=== PATIENT | male | born 1965 | race Two or more races ===

== ENCOUNTER 2017-04-12 01:20 | Emergency (ER) | payer OTHER ==
[~2017-04-12] VITALS: Ht 172.7 cm; Wt 71.7 kg
[~2017-04-12 01:20] MED LIST: HYDR-3651 PO; IBUP-1482 PO; NAPR220C15 PO; VALACYCLOVIR; [UNRECOGNIZED DRUG - OTHER]
[2017-04-12] MEDS ORDERED: DEXAMETHASONE SOD PHOSPHATE 4 MG INJ IM ONE (02:00)
--- NOTE | 2017-04-12 02:10 | NUR ---
Patient discharged to home in stable conditon. Written and verbal after care instructions given. Patient verbalizes understanding of instructions.
[2017-04-12] MEDS ORDERED: DEXAMETHASONE SOD PHOSPHATE 4 MG INJ ONE (02:16)
== END 2017-04-12 02:14 | disposition home or self-care (01) ==
LOC: ER 01:23
DX: J02.9 Acute pharyngitis, unspecified (principal); Z88.8 Allergy status to other drugs, medicaments and biological substances
CPT/HCPCS: 96372; 99283; A4663; J1100

== ENCOUNTER 2017-05-29 00:26 | Emergency (ER) | payer MEDICAID, OTHER ==
[~2017-05-29] VITALS: Ht 167.6 cm; Wt 71.7 kg
[~2017-05-29 00:26] MED LIST changes: -HYDR-3651 PO; +HYDR-4209 PO; -IBUP-1482 PO; +IBUP-1957 PO
[2017-05-29] MEDS: DEXAMETHASONE SOD PHOSPHATE 4 MG INJ IM ONE (01:16)
[2017-05-29] MEDS: AZITHROMYCIN 250 MG TABLET PO ONE (01:17)
--- NOTE | 2017-05-29 01:17 | NUR ---
Darrius brantley in ED - 05/29/17 at 0117 by MERARY Patient discharged to home in stable conditon. Written and verbal after care instructions given. Patient verbalizes understanding of instructions.
[2017-05-29] MEDS ORDERED: AZITHROMYCIN 250 MG TABLET ONE (01:21)
[2017-05-29] MEDS ORDERED: DEXAMETHASONE 4 MG TABLET ONE (01:21)
--- NOTE | 2017-05-29 01:21 | NUR ---
Patient discharged to home in stable conditon. Written and verbal after care instructions given. Patient verbalizes understanding of instructions.
[2017-05-29] MEDS ORDERED: DEXAMETHASONE SOD PHOSPHATE 4 MG INJ ONE (01:28)
== END 2017-05-29 01:23 | disposition home or self-care (01) ==
LOC: ER 00:28
DX: J02.9 Acute pharyngitis, unspecified (principal); Z88.8 Allergy status to other drugs, medicaments and biological substances
CPT/HCPCS: A4663; J1100; J8540; Q0144

== ENCOUNTER 2018-01-21 00:36 | Emergency (ER) | payer OTHER ==
[~2018-01-21] VITALS: Ht 167.6 cm; Wt 66.2 kg
[2018-01-21] MEDS: IV NORMAL SALINE 500 ML BAG IV ONE (01:04)
--- NOTE | 2018-01-21 01:12 | NUR ---
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
[2018-01-21 01:13] LABS: BASOPHILS % (AUTO) 0.3 % (0.0-2.0); EOSINOPHILS # (AUTO) 0.1 K/uL (0.0-0.7); EOSINOPHILS % (AUTO) 1.5 % (0.0-7.0); HEMATOCRIT 36.2 % (36.7-47.1); HEMOGLOBIN 12.1 g/dL (12.5-16.3); LYMPHOCYTES # (AUTO) 1.2 K/uL (20.0-40.0); LYMPHOCYTES % (AUTO) 22.6 % (20.5-51.5); MEAN CORPUSCULAR HEMOGLOBIN 32.7 uug (23.8-33.4); MEAN CORPUSCULAR HGB CONC 34 g/dL (32.5-36.3); MEAN CORPUSCULAR VOLUME 97.2 fL (73.0-96.2); MONOCYTES # (AUTO) 0.5 K/uL (2.0-10.0); MONOCYTES % (AUTO) 10.6 % (0.0-11.0); NEUTROPHILS # (AUTO) 3.3 K/uL (1.8-8.9); PLATELET COUNT (AUTO) 312 K/uL (152-348); RED BLOOD CELL COUNT(AUTO) 3.72 MIL/uL (4.06-5.63); WHITE BLOOD COUNT (AUTO) 5.1 K/uL (3.6-10.2)
[2018-01-21 01:16] LABS: CREATININE 1.4 mg/dL (0.6-1.3); POTASSIUM 3.8 mmol/L (3.5-5.1)
--- NOTE | 2018-01-21 01:33 | NUR ---
Patient in bed, no acute distress noted.
[2018-01-21 01:40] LABS: BILIRUBIN,DIRECT 0.1 mg/dL (0.0-0.2); BILIRUBIN,TOTAL 0.4 mg/dL (0.2-1.0)
[2018-01-21] MEDS ORDERED: KETOROLAC TROMETHAMINE 30 MG INJ ONE (01:53)
[2018-01-21] MEDS: KETOROLAC TROMETHAMINE 30 MG INJ IVP ONE (01:57)
[2018-01-21 01:58] VITALS: BP 121/78
--- NOTE | 2018-01-21 01:58 | NUR ---
Patient discharged to home in stable conditon. Written and verbal after care instructions given. Patient verbalizes understanding of instructions. Ambulated from ER with stable gait. Peripheral IV removed prior to d/c. All belongings with patient.
== END 2018-01-21 02:02 | disposition home or self-care (01) ==
LOC: ER 00:40
DX: R07.89 Other chest pain (principal); Z88.8 Allergy status to other drugs, medicaments and biological substances; Z79.1 Long term (current) use of non-steroidal anti-inflammatories (NSAID); Z79.891 Long term (current) use of opiate analgesic; Z79.899 Other long term (current) drug therapy
CPT/HCPCS: 36415; 71045; 80048; 80076; 83880; 84484; 85025; 85730; 93005; 96374; 99285; A4663; J1885; J7040; 70030-TC

== ENCOUNTER 2018-01-28 22:37 | Emergency (ER) | payer OTHER ==
[~2018-01-28] VITALS: Ht 167.6 cm; Wt 68.9 kg
[2018-01-28] MEDS ORDERED: HYDROCODONE-ACETAMIN 10-325 MG (23:09)
[2018-01-28] MEDS ORDERED: OMEPRAZOLE CAP 40MG (23:09)
[2018-01-28] MEDS ORDERED: VIAGRA 100 MG TABLET (23:09)
[2018-01-28] MEDS ORDERED: VALACYCLOVIR HCL 500 MG TABLET (23:09)
[2018-01-28] MEDS ORDERED: TRUVADA 200 MG-300 MG TABLET (23:09)
[2018-01-28] MEDS ORDERED: ALFUZOSIN HCL 10 MG (23:09)
[2018-01-28] MEDS ORDERED: NORTRIPTYLINE HCL 10 MG CAP (23:09)
[2018-01-28] MEDS ORDERED: ALFUZOSIN 10 MG (23:09)
--- NOTE | 2018-01-29 00:15 | NUR ---
BATSHEVA GARCIA AT BEDSIDE FOR MSE.
--- NOTE | 2018-01-29 00:25 | NUR ---
PT AMBULATED TO AND FROM BATHROOM W/ STEADY GAIT. DENIES DIZZINESS OR SOB.
--- NOTE | 2018-01-29 00:27 | NUR ---
[facility] AT BEDSIDE FOR BLOOD DRAW.
[2018-01-29 00:42] LABS: BASOPHILS % (AUTO) 0.3 % (0.0-2.0); EOSINOPHILS # (AUTO) 0.1 K/uL (0.0-0.7); EOSINOPHILS % (AUTO) 1.5 % (0.0-7.0); HEMATOCRIT 37.8 % (36.7-47.1); HEMOGLOBIN 12.5 g/dL (12.5-16.3); LYMPHOCYTES # (AUTO) 1.4 K/uL (20.0-40.0); LYMPHOCYTES % (AUTO) 21.9 % (20.5-51.5); MEAN CORPUSCULAR HEMOGLOBIN 31.9 uug (23.8-33.4); MEAN CORPUSCULAR HGB CONC 33 g/dL (32.5-36.3); MEAN CORPUSCULAR VOLUME 96.6 fL (73.0-96.2); MONOCYTES # (AUTO) 0.6 K/uL (2.0-10.0); MONOCYTES % (AUTO) 9.7 % (0.0-11.0); NEUTROPHILS # (AUTO) 4.2 K/uL (1.8-8.9); NEUTROPHILS % (AUTO) 66.6 % (38.5-71.5); PLATELET COUNT (AUTO) 343 K/uL (152-348); RED BLOOD CELL COUNT(AUTO) 3.92 MIL/uL (4.06-5.63); WHITE BLOOD COUNT (AUTO) 6.3 K/uL (3.6-10.2)
[2018-01-29 00:42] LABS: *BILIRUBIN,URIN NEGATIVE (NEGATIVE); *BLOOD, URINE Trace-intact (NEGATIVE); *CLARITY,URINE CLEAR (CLEAR); *COLOR,URINE YELLOW (YELLOW); *KETONES,URINE NEGATIVE (NEGATIVE); *PROTEIN,URINE NEGATIVE (NEGATIVE); *UROBILINOGEN,URINE 0.2 E.U./dl (NORMAL); LEUKOCYTE ESTERASE ,URINE 1+ (NEGATIVE); NITRITE, URINE NEGATIVE (NEGATIVE); PH,URINE 5.5 (5.0-8.0); UGLUCOSE NEGATIVE (NEGATIVE)
[2018-01-29 00:48] LABS: BACTERIA,URINE FEW /HPF (NONE SEEN); SQUAMOUS EPITHELIAL CELL,UR FEW /HPF (NONE SEEN)
[2018-01-29 01:01] LABS: BILIRUBIN,DIRECT 0.1 mg/dL (0.0-0.2); BILIRUBIN,TOTAL 0.4 mg/dL (0.2-1.0); CREATININE 1.2 mg/dL (0.6-1.3); POTASSIUM 4.6 mmol/L (3.5-5.1)
[2018-01-29 02:29] VITALS: BP 80/129
== END 2018-01-29 02:31 | disposition home or self-care (01) ==
LOC: ER 22:39
DX: R10.11 Right upper quadrant pain (principal); Z88.8 Allergy status to other drugs, medicaments and biological substances; Z79.1 Long term (current) use of non-steroidal anti-inflammatories (NSAID); Z79.891 Long term (current) use of opiate analgesic; Z79.899 Other long term (current) drug therapy
CPT/HCPCS: 36415; 83690; 85025; A4663

== ENCOUNTER 2018-10-08 00:09 | Emergency (ER) | payer OTHER ==
[~2018-10-08] VITALS: Ht 170.2 cm; Wt 72.6 kg
[~2018-10-08 00:09] MED LIST changes: +ALFUZOSIN 10 MG; +ALFUZOSIN HCL 10 MG; +HYDROCODONE-ACETAMIN 10-325 MG; +NORTRIPTYLINE HCL 10 MG CAP; +OMEPRAZOLE CAP 40MG; +TRUVADA 200 MG-300 MG TABLET; +VALACYCLOVIR HCL 500 MG TABLET; +VIAGRA 100 MG TABLET
[2018-10-08] MEDS ORDERED: DEXAMETHASONE SOD PHOSPHATE 10 MG INJ ONE (00:44)
[2018-10-08] MEDS: DEXAMETHASONE SOD PHOSPHATE 4 MG INJ IM ONE (00:45)
[2018-10-08 00:47] VITALS: BP 122/78
--- NOTE | 2018-10-08 00:47 | NUR ---
Patient discharged to home in stable conditon. Written and verbal after care instructions given. Patient verbalizes understanding of instructions. ALL BELONGINGS W/ PT. PT SELF-AMBULATED W/O DIFFICULTY.
== END 2018-10-08 00:48 | disposition home or self-care (01) ==
LOC: ER 00:12
DX: J02.9 Acute pharyngitis, unspecified (principal); Z88.8 Allergy status to other drugs, medicaments and biological substances
CPT/HCPCS: 36415; 86403; 87070; 96372; 99284; J1100; A4663

== ENCOUNTER 2019-12-02 21:08 | Emergency (ER) | payer OTHER ==
[~2019-12-02] VITALS: Ht 167.6 cm; Wt 74.8 kg
[2019-12-02] MEDS ORDERED: AZEL30SP2 NS (21:16)
--- NOTE | 2019-12-02 21:54 | NUR ---
Dr. Dinh at bedside [facility]
[2019-12-02] MEDS ORDERED: ALBUTEROL SULFATE 2.5 MG/3 ML NEBU NEB ONE (22:00)
[2019-12-02] MEDS ORDERED: BENZONATATE 100 MG CAPSULE PO ONE (22:00)
[2019-12-02] MEDS ORDERED: BENZONATATE 100 MG CAPSULE ONE (22:01)
[2019-12-02] MEDS ORDERED: ALBUTEROL SULFATE 2.5 MG/3 ML NEBU ONE (22:05)
--- NOTE | 2019-12-02 22:44 | NUR ---
Patient discharged to home in stable conditon. Written and verbal after care instructions given. Patient verbalizes understanding of instructions. Patient ambulating with steady gait
[2019-12-02 22:46] VITALS: BP 133/82
== END 2019-12-02 22:44 | disposition home or self-care (01) ==
LOC: ER 21:08
DX: J20.9 Acute bronchitis, unspecified (principal); Z88.8 Allergy status to other drugs, medicaments and biological substances; Z79.899 Other long term (current) drug therapy; Z79.1 Long term (current) use of non-steroidal anti-inflammatories (NSAID)
CPT/HCPCS: 71045; A4663

== ENCOUNTER 2020-03-27 03:14 | Emergency (ER) | payer OTHER ==
[~2020-03-27] VITALS: Ht 167.6 cm; Wt 72.6 kg
[~2020-03-27 03:14] MED LIST changes: -ALFUZOSIN 10 MG; -ALFUZOSIN HCL 10 MG; +AZEL30SP2 NS; -IBUP-1957 PO
[2020-03-27 04:04] LABS: BASOPHILS % (AUTO) 0.1 % (0.0-2.0); CREATININE 1.6 mg/dL (0.6-1.3); EOSINOPHILS % (AUTO) 0.3 % (0.0-7.0); HEMATOCRIT 45.8 % (36.7-47.1); HEMOGLOBIN 15.5 g/dL (12.5-16.3); LYMPHOCYTES # (AUTO) 0.9 K/uL (20.0-40.0); LYMPHOCYTES % (AUTO) 11.4 % (20.5-51.5); MEAN CORPUSCULAR HEMOGLOBIN 33.1 uug (23.8-33.4); MEAN CORPUSCULAR HGB CONC 34 g/dL (32.5-36.3); MEAN CORPUSCULAR VOLUME 97.9 fL (73.0-96.2); MONOCYTES # (AUTO) 0.6 K/uL (2.0-10.0); MONOCYTES % (AUTO) 7.4 % (0.0-11.0); NEUTROPHILS # (AUTO) 6.6 K/uL (1.8-8.9); NEUTROPHILS % (AUTO) 80.8 % (38.5-71.5); PLATELET COUNT (AUTO) 198 K/uL (152-348); POTASSIUM 3.4 mmol/L (3.5-5.1); RED BLOOD CELL COUNT(AUTO) 4.68 MIL/uL (4.06-5.63); WHITE BLOOD COUNT (AUTO) 8.1 K/uL (3.6-10.2)
[2020-03-27 04:10] LABS: BILIRUBIN,TOTAL 1.3 mg/dL (0.2-1.0); TOTAL PROTEIN, SERUM 7.9 g/dL (6.4-8.2)
[2020-03-27 04:20] VITALS: BP 120/83
== END 2020-03-27 04:21 | disposition home or self-care (01) ==
LOC: ER 03:18
DX: B34.9 Viral infection, unspecified (principal); R61 Generalized hyperhidrosis; R50.9 Fever, unspecified
CPT/HCPCS: 36415; 71045; 85025; A4663

== ENCOUNTER 2020-04-06 04:02 | Emergency (ER) | payer OTHER ==
[~2020-04-06] VITALS: Ht 172.7 cm; Wt 63.5 kg
--- NOTE | 2020-04-06 04:15 | NUR ---
PATIENT WAS MSE BY ARLENE IN ROOM 04B.
[2020-04-06 04:52] LABS: BASOPHILS % (AUTO) 0.1 % (0.0-2.0); CREATININE 1.4 mg/dL (0.6-1.3); EOSINOPHILS # (AUTO) 0.1 K/uL (0.0-0.7); EOSINOPHILS % (AUTO) 0.7 % (0.0-7.0); HEMATOCRIT 42.2 % (36.7-47.1); HEMOGLOBIN 14.9 g/dL (12.5-16.3); LYMPHOCYTES # (AUTO) 2.2 K/uL (20.0-40.0); MEAN CORPUSCULAR HEMOGLOBIN 33.6 uug (23.8-33.4); MEAN CORPUSCULAR HGB CONC 35 g/dL (32.5-36.3); MEAN CORPUSCULAR VOLUME 95.3 fL (73.0-96.2); MONOCYTES # (AUTO) 0.6 K/uL (2.0-10.0); MONOCYTES % (AUTO) 6.7 % (0.0-11.0); NEUTROPHILS # (AUTO) 5.5 K/uL (1.8-8.9); NEUTROPHILS % (AUTO) 66.5 % (38.5-71.5); PLATELET COUNT (AUTO) 317 K/uL (152-348); POTASSIUM 4.2 mmol/L (3.5-5.1); RED BLOOD CELL COUNT(AUTO) 4.43 MIL/uL (4.06-5.63); WHITE BLOOD COUNT (AUTO) 8.3 K/uL (3.6-10.2)
[2020-04-06] MEDS ORDERED: KETOROLAC TROMETHAMINE 30 MG INJ IVP ONE (05:00)
[2020-04-06] MEDS ORDERED: KETOROLAC TROMETHAMINE 30 MG INJ ONE ×2 (05:14→05:20)
[2020-04-06 05:29] LABS: BILIRUBIN,DIRECT 0.1 mg/dL (0.0-0.2); BILIRUBIN,TOTAL 0.3 mg/dL (0.2-1.0); TOTAL PROTEIN, SERUM 7.5 g/dL (6.4-8.2)
[2020-04-06] MEDS ORDERED: IV NS 1000 ML 1,000 ML IV ONE (05:45)
[2020-04-06 06:33] LABS: *BILIRUBIN,URIN NEGATIVE (NEGATIVE); *BLOOD, URINE NEGATIVE (NEGATIVE); *CLARITY,URINE SLIGHTLY CLOUDY (CLEAR); *COLOR,URINE YELLOW (YELLOW); *KETONES,URINE NEGATIVE (NEGATIVE); *UROBILINOGEN,URINE 0.2 E.U./dl (NORMAL); LEUKOCYTE ESTERASE ,URINE NEGATIVE (NEGATIVE); NITRITE, URINE NEGATIVE (NEGATIVE); UGLUCOSE NEGATIVE (NEGATIVE)
[2020-04-06 06:42] LABS: BACTERIA,URINE NONE SEEN /HPF (NONE SEEN); SQUAMOUS EPITHELIAL CELL,UR MODERATE /HPF (NONE SEEN); WBC,URINE 0-3 /HPF (0-3)
[2020-04-06 06:43] LABS: MUCUS,URINE MANY /LPF (0-FEW); URINE AMORPHOUS URATE FEW /HPF
--- NOTE | 2020-04-06 06:46 | NUR ---
IV removed. Catheter intact and site benign. Pressure and 4x4 gauze applied to site. No bleeding noted.
--- NOTE | 2020-04-06 06:46 | NUR ---
Darrius brantley in ED - 04/06/20 at 0653 by [id number] Patient discharged to home in stable condition. Written and verbal after care instructions given. Patient verbalizes understanding of instructions. Stressed follow up or return to ER for worsening s/s.
[2020-04-06 06:52] VITALS: BP 115/73
--- NOTE | 2020-04-06 06:52 | NUR ---
Patient discharged to home in stable condition. Written and verbal after care instructions given. Patient verbalizes understanding of instructions. Stressed follow up or return to ER for worsening s/s.
== END 2020-04-06 06:54 | disposition home or self-care (01) ==
LOC: ER 04:16
DX: R10.32 Left lower quadrant pain (principal); N18.9 Chronic kidney disease, unspecified
CPT/HCPCS: 36415; 74176; 80048; 80076; 81001; 84484; 85025; 85379; 93005; 96374; 99285; J1885; 70030-TC; A4663

== ENCOUNTER 2021-04-10 03:02 | Emergency (ER) | payer OTHER ==
[~2021-04-10] VITALS: Ht 167.6 cm; Wt 77.1 kg
[2021-04-10] MEDS ORDERED: DIPH25TA25 PO (03:22)
[2021-04-10] MEDS ORDERED: PRED20TA PO (03:22)
[2021-04-10] MEDS ORDERED: EPINEPHRINE 1 MG/1 ML AMP ONE (03:27)
[2021-04-10] MEDS ORDERED: diphenhydrAMINE 50 MG/1 ML VIAL ONE (03:27)
[2021-04-10] MEDS ORDERED: FAMOTIDINE 20 MG TABLET ONE (03:27)
[2021-04-10] MEDS ORDERED: predniSONE 10 MG TABLET ONE (03:27)
[2021-04-10] MEDS ORDERED: predniSONE 50 MG TABLET ONE (03:27)
[2021-04-10] MEDS ORDERED: FAMOTIDINE 20 MG TABLET PO ONE (03:30)
[2021-04-10] MEDS ORDERED: diphenhydrAMINE 50 MG/1 ML VIAL IM ONE (03:30)
[2021-04-10] MEDS ORDERED: EPINEPHRINE 1 MG/1 ML AMP SQ ONE (03:30)
[2021-04-10] MEDS ORDERED: predniSONE 10 MG TABLET PO ONE (03:30)
--- NOTE | 2021-04-10 04:00 | NUR ---
Patient resting on bed, eyes closed. No acute distress noted.
[2021-04-10 04:35] VITALS: BP 130/82
--- NOTE | 2021-04-10 04:35 | NUR ---
Patient discharged to home in stable condition. Written and verbal after care instructions given. Patient verbalizes understanding of instructions. Stressed follow up or return to ER for worsening s/s. Patient ambulates with steady gait, v/s stable, Rx electronically sent to pharmacy, patient left with all belongings.
== END 2021-04-10 04:35 | disposition home or self-care (01) ==
LOC: ER 03:19
DX: L50.0 Allergic urticaria (principal); T39.315A Adverse effect of propionic acid derivatives, initial encounter; Y92.89 Other specified places as the place of occurrence of the external cause; Z88.8 Allergy status to other drugs, medicaments and biological substances; Z83.79 Family history of other diseases of the digestive system; Z84.89 Family history of other specified conditions; R03.0 Elevated blood-pressure reading, without diagnosis of hypertension
CPT/HCPCS: 96372 ×2; 99284; J0171; J1200; J7512 ×2; A4663

== ENCOUNTER 2021-04-12 04:14 | Emergency (ER) | payer OTHER ==
[~2021-04-12] VITALS: Ht 167.6 cm; Wt 77.1 kg
[~2021-04-12 04:14] MED LIST changes: +DIPH25TA25 PO; +PRED20TA PO
--- NOTE | 2021-04-12 04:31 | NUR ---
Patient walked into ER with c/o throat discomfort. Ambulatory, steady gait. No SOB or labored breathing, no audible wheezing noted. Afebrile. No c/o pain at this time. Able to verbalize needs, clear speech, no itching in throat, per patient "I'm just not able to talk with my normal tone of voice". All pulses palpable, no edema noted, denies palpations, no chest pain/pressure. Denies any abdominal pain, bowel sounds normoactive x4 quadrants. Denies any GI/ distress, pyuria or any hematuria. Patient in bed lowest position, call light within easy reach. Patient precautions per protocol.
--- NOTE | 2021-04-12 04:44 | NUR ---
Dr. Carrizales at bedside MSE in progress in room 5A
[2021-04-12] MEDS ORDERED: METH4TAB3 PO (04:56)
[2021-04-12] MEDS ORDERED: DEXAMETHASONE SOD PHOSPHATE 4 MG INJ IM ONE (05:00)
[2021-04-12] MEDS ORDERED: DEXAMETHASONE SOD PHOSPHATE 4 MG INJ ONE (05:08)
--- NOTE | 2021-04-12 05:09 | NUR ---
Medications given as ordered, no ASE noted. Patient discharged to home in stable condition. Written and verbal after care instructions given. Patient verbalizes understanding of instructions. Stressed follow up or return to ER for worsening s/s. No SOB or labored breathing, no audible wheezes. No c/o n/v. No GI/ pain/discomfort. Steady gait.
[2021-04-12 05:12] VITALS: BP 142/84
== END 2021-04-12 05:13 | disposition home or self-care (01) ==
LOC: ER 04:20
DX: J04.0 Acute laryngitis (principal); T39.31 Poisoning by, adverse effect of and underdosing of propionic acid derivatives; Z83.79 Family history of other diseases of the digestive system; Z84.89 Family history of other specified conditions
CPT/HCPCS: 96372; 99283; J1100; A4663

== ENCOUNTER 2023-08-14 01:34 | Emergency (ER) | payer OTHER ==
[~2023-08-14] VITALS: Ht 167.6 cm; Wt 73.9 kg
[~2023-08-14 01:34] MED LIST changes: +METH4TAB3 PO
[2023-08-14] MEDS ORDERED: IV NORMAL SALINE 1000 ML BAG IV ONE (02:15)
[2023-08-14 02:39] LABS: BASOPHILS % (AUTO) 0.2 % (0.0-2.0); EOSINOPHILS # (AUTO) 0.1 K/uL (0.0-0.7); EOSINOPHILS % (AUTO) 1.4 % (0.0-7.0); HEMATOCRIT 46.1 % (36.7-47.1); LYMPHOCYTES # (AUTO) 2.5 K/uL (0.8-4.8); LYMPHOCYTES % (AUTO) 36.8 % (20.5-51.5); MEAN CORPUSCULAR HEMOGLOBIN 32.6 uug (23.8-33.4); MEAN CORPUSCULAR HGB CONC 35 g/dL (32.5-36.3); MEAN CORPUSCULAR VOLUME 93.9 fL (73.0-96.2); MONOCYTES # (AUTO) 0.6 K/uL (0.1-1.30); MONOCYTES % (AUTO) 8.6 % (0.0-11.0); NEUTROPHILS # (AUTO) 3.7 K/uL (1.8-8.9); PLATELET COUNT (AUTO) 248 K/uL (152-348); RED BLOOD CELL COUNT(AUTO) 4.91 MIL/uL (4.06-5.63); RED CELL DISTRIBUTION WIDTH 13.2 % (12.1-16.2); WHITE BLOOD COUNT (AUTO) 6.9 K/uL (3.6-10.2)
[2023-08-14 02:45] LABS: DIFFERENTIAL COMMENT 1
[2023-08-14 02:52] LABS: CALCIUM 9.1 mg/dL (8.5-10.1); CREATININE 1.2 mg/dL (0.6-1.3); POTASSIUM 3.9 mmol/L (3.5-5.1)
[2023-08-14 02:57] LABS: BILIRUBIN,TOTAL 0.3 mg/dL (0.2-1.0); TOTAL PROTEIN, SERUM 7.5 g/dL (6.4-8.2)
[2023-08-14 03:01] LABS: BILIRUBIN,DIRECT 0.1 mg/dL (0.0-0.2)
[2023-08-14 04:19] LABS: *BILIRUBIN,URIN NEGATIVE (NEGATIVE); *BLOOD, URINE NEGATIVE (NEGATIVE); *CLARITY,URINE CLEAR (CLEAR); *COLOR,URINE YELLOW (YELLOW); *KETONES,URINE NEGATIVE (NEGATIVE); *PROTEIN,URINE NEGATIVE (NEGATIVE); *UROBILINOGEN,URINE 0.2 E.U./dl (NORMAL); NITRITE, URINE NEGATIVE (NEGATIVE); UGLUCOSE NEGATIVE (NEGATIVE)
[2023-08-14 04:23] LABS: LEUKOCYTE ESTERASE ,URINE NEGATIVE (NEGATIVE)
[2023-08-14 06:03] VITALS: BP 128/72; TEMP 98; O2SAT 98
== END 2023-08-14 06:03 | disposition home or self-care (01) ==
LOC: ER 01:36
DX: R10.32 Left lower quadrant pain (principal); R10.31 Right lower quadrant pain; M54.50 Low back pain, unspecified; Z88.8 Allergy status to other drugs, medicaments and biological substances; Z79.899 Other long term (current) drug therapy
CPT/HCPCS: 36415; 83690; 85025; A4663; J7040